=== PATIENT | female | born 1985 | race American Indian/Alaskan Native ===

== ENCOUNTER 2017-08-22 08:20 | Emergency (ER) | payer MEDICAID ==
[2017-08-22 09:05] LABS: Basophils % (Auto) 0.6 % (0.0-1.8); Eosinophils % (Auto) 4.7 % (0.0-4.3); Hematocrit 34.8 % (30.3-42.9); Mean Corpuscular HGB Conc 35 % (30-34); Mean Corpuscular Hemoglobin 28 pg (28-32); Mean Corpuscular Volume 80 fl (79-97); Platelet Count 460 K/mm3 (140-440); Red Blood Count 4.36 M/mm3 (3.65-5.03); Red Cell Distribution Width 13.5 % (13.2-15.2); White Blood Count 8.8 K/mm3 (4.5-11.0)
[2017-08-22 09:14] LABS: Anion Gap 17 mmol/L; BUN/Creatinine Ratio 15; Blood Urea Nitrogen 9 mg/dL (7-17); Calcium 8.5 mg/dL (8.4-10.2); Carbon Dioxide 23 mmol/L (22-30); Glucose 229 mg/dL (65-100); Sodium 136 mmol/L (137-145)
[2017-08-22 09:33] LABS: Bacteria,Urine 1+ /HPF (Negative); Bilirubin,Urine NEG (Negative); Blood,Urine MOD (Negative); Ketones,Urine NEG (Negative); Leukocyte Esterase,Urine TR (Negative); Mucus,Urine FEW /HPF; Nitrite,Urine NEG (Negative); Protein,Urine <15 mg/dL mg/dL (Negative)
--- NOTE | 2017-08-22 10:17 | Emergency Department Report ---
Chief Complaint: Vaginal Bleeding Stated Complaint: PREG AND BLEEDING Time Seen by Provider: 08/22/17 10:13 - HPI History of Present Illness: PT states she is 8 weeks . PT states she has been seen by [facility] DIET[facility]. PT states she noticed reddish-pinkish discharge. G4 P 2 - ROS Review of Systems: + nausea + vomiting - Exam Vital Signs: Vital Signs 08/22/17 08:23 Temperature 98.8 F Pulse Rate 110 H Respiratory 18 Rate Blood Pressure 150/92 O2 Sat by Pulse 100 Oximetry Physical Exam: PT looks well, non toxic. abd soft and not tender MSE screening note: Focused history and physical exam performed. Due to findings the following was ordered: ED Medical Decision Making - Lab Data Result diagrams: 08/22/17 08:37 08/22/17 08:37 ED Disposition for MSE Condition: Stable Referrals: PRIMARY CARE, [Primary Care Provider] - 3-5 Days
--- NOTE | 2017-08-22 11:15 | Ultrasound Report ---
Pelvic and transvaginal sonography: History: and bleeding. Findings: Uterus measures 13.1 x 8 x 9.2 cm. Single intrauterine gestation is noted. The CRL of the fetus is 19.1 mm corresponding to 8 weeks and 3 days of gestation. heart rate 168 per minute. Small subchorionic bleed measuring 1.2 x 0.5 cm. Right ovary 3.5 x 1.4 x 2.6 cm. No mass. Left ovary 3.1 x 1.3 x 1.8 cm. No mass. Impression: Single viable intrauterine gestation. Small subchorionic bleed.
[2017-08-22 12:10] VITALS: BP 150/92
--- NOTE | 2017-08-22 12:17 | Emergency Department Report ---
ED Female HPI - General Chief complaint: Vaginal Bleeding Stated complaint: PREG AND BLEEDING Time Seen by Provider: 08/22/17 10:13 Source: patient Mode of arrival: Ambulatory Limitations: No Limitations - History of Present Illness Initial comments: PT states she is 8 weeks . PT states she noticed bloody discharge today. PT states she has an appointment on . PT states she does have DM and she has not taken her insulin today. PT states her PCP recently changed her htn medication to Labetaolol. PT states she recently had sex. MD Complaint: vaginal bleeding -: Gradual Radiation: suprapubic Severity: mild Severity scale (0 -10): 2 Quality: cramping Consistency: constant Improves with: none Worsens with: none Are you Now?: Yes Associated Symptoms: vaginal discharge (bloody vaginal discharge ), vaginal bleeding, nausea/vomiting, loss of appetite. denies: dysuria - Related Data Sexually active: Yes : 4 Para: 2 A: 1 Home Medications Medication Instructions Recorded Confirmed Last Taken Insulin Aspart Prot/Aspart(Nf) 10 units SQ BID 05/03/14 05/03/14 05/03/14 [NovoLOG Mix 70/30 VIAL] Liraglutide [Victoza 2-Guero] 1.2 mg SQ DAILY 05/03/14 05/03/14 05/03/14 Previous Rx's Medication Instructions Recorded Last Taken Type Vit/Iron Fum/Folic AC 1 each PO QDAY #90 tablet 05/04/14 Unknown Rx [ Vitamin Tablet] Doxylamine Succinate/Vit B6 1 each PO HS PRN #14 tablet. 08/22/17 Unknown Rx [Red Garcia 10-10 mg Tablet] Promethazine [Phenergan TAB] 25 mg PO Q6HR PRN #12 tab 08/22/17 Unknown Rx Allergies Allergy/AdvReac Type Severity Reaction Status Date / Time No Known Allergies Allergy Unverified 05/03/14 21:48 ED Review of Systems ROS: Stated complaint: PREG AND BLEEDING Other details as noted in HPI Comment: All other systems reviewed and negative Constitutional: denies: chills, fever Gastrointestinal: abdominal pain (mild cramp, rates 2/10 ), nausea, vomiting, other (PT states she recently went to her [facility] and that she was supposed to have RX for Phenergan ) Neurological: denies: headache, abnormal gait ED Past Medical Hx - Past Medical History Previous Medical History?: Yes Hx Hypertension: Yes Hx Diabetes: Yes Additional medical history: Chronic Back Pain - Surgical History Past Surgical History?: Yes Additional Surgical History: Bilateral Breast Reduction - Social History Smoking Status: Current Some Day Smoker Substance Use Type: None - Medications Home Medications: Home Medications Medication Instructions Recorded Confirmed Last Taken Type Insulin Aspart Prot/Aspart(Nf) 10 units SQ BID 05/03/14 05/03/14 05/03/14 History [NovoLOG Mix 70/30 VIAL] Liraglutide [Victoza 2-Guero] 1.2 mg SQ DAILY 05/03/14 05/03/14 05/03/14 History Vit/Iron Fum/Folic AC 1 each PO QDAY #90 tablet 05/04/14 Unknown Rx [ Vitamin Tablet] Doxylamine Succinate/Vit B6 1 each PO HS PRN #14 tablet. 08/22/17 Unknown Rx [Diclegis Dr 10-10 mg Tablet] Promethazine [Phenergan TAB] 25 mg PO Q6HR PRN #12 tab 08/22/17 Unknown Rx ED Physical Exam - General Limitations: No Limitations General appearance: alert, in no apparent distress - Head Head exam: Present: atraumatic, normocephalic, normal inspection - Eye Eye exam: Present: normal appearance, PERRL, EOMI. Absent: conjunctival injection - ENT ENT exam: Present: normal exam, mucous membranes moist, normal external ear exam - Neck Neck exam: Present: normal inspection, full ROM - Respiratory Respiratory exam: Absent: respiratory distress, chest wall tenderness - Cardiovascular Cardiovascular Exam: Present: normal rhythm, tachycardia - GI/Abdominal GI/Abdominal exam: Present: soft, normal bowel sounds. Absent: tenderness, guarding, rebound - Extremities Exam Extremities exam: Present: normal inspection, full ROM - Back Exam Back exam: Present: normal inspection, full ROM. Absent: tenderness, CVA tenderness (R), CVA tenderness (L), muscle spasm, paraspinal tenderness, vertebral tenderness - Neurological Exam Neurological exam: Present: alert, oriented X3 - Expanded Neurological Exam Expanded Patient oriented to: Present: person, place, time Best Eye Response (Susan): (4) open spontaneously Best Motor Response (Susan): (6) obeys commands Best Verbal Response (Susan): (5) oriented [place] Total: 15 - Psychiatric Psychiatric exam: Present: normal affect, normal mood - Skin Skin exam: Present: warm, dry, intact, normal color ED Course Vital Signs 08/22/17 08:23 Temperature 98.8 F Pulse Rate 110 H Respiratory 18 Rate Blood Pressure 150/92 O2 Sat by Pulse 100 Oximetry - Reevaluation(s) Reevaluation #1: 08/22/17 12:13 PT aware of lab and US results. PT states she has not taken her insulin today. PT states she has to go. PT aware of US results. PT not wanting to stay for IVFs or pelvic exam. PT states her nausea is mild and she thinks can be managed at home. 08/22/17 PT left before bp rechecked. PT was aware that her bp was elevated. Pt states that she has an appointment on and she will recheck her bp. 08/22/17 18:29 - Pulse Oximetry Interpretation Digit-Finger Initial Pulse Oximetry Readin ED Medical Decision Making - Lab Data Result diagrams: 08/22/17 08:37 08/22/17 08:37 Lab Results 08/22/17 08/22/17 08/22/17 Range/Units 08:37 08:37 08:37 WBC 8.8 (4.5-11.0) K/mm3 RBC 4.36 (3.65-5.03) M/mm3 Hgb 12.0 (10.1-14.3) gm/dl Hct 34.8 (30.3-42.9) % MCV 80 (79-97) fl MCH 28 (28-32) pg MCHC 35 H (30-34) % RDW 13.5 (13.2-15.2) % Plt Count 460 H (140-440) K/mm3 Lymph % (Auto) 26.7 (13.4-35.0) % [place] % (Auto) 7.4 H (0.0-7.3) % Eos % (Auto) 4.7 H (0.0-4.3) % Baso % (Auto) 0.6 (0.0-1.8) % Lymph # 2.3 (1.2-5.4) K/mm3 [place] # 0.7 (0.0-0.8) K/mm3 Eos # 0.4 (0.0-0.4) K/mm3 Baso # 0.1 (0.0-0.1) K/mm3 Seg Neutrophils % 60.6 (40.0-70.0) % Seg Neutrophils # 5.3 (1.8-7.7) K/mm3 Sodium 136 L (137-145) mmol/L Potassium 4.0 (3.6-5.0) mmol/L Chloride 100.0 (98-107) mmol/L Carbon Dioxide 23 (22-30) mmol/L Anion Gap 17 mmol/L BUN 9 (7-17) mg/dL Creatinine 0.6 L (0.7-1.2) mg/dL Estimated GFR > 60 ml/min BUN/Creatinine Ratio 15 % Glucose 229 H (65-100) mg/dL Calcium 8.5 (8.4-10.2) mg/dL HCG, Quant 33663 H (0-4) mIU/mL Urine Color (Yellow) Urine Turbidity (Clear) Urine pH (5.0-7.0) Ur Specific [place] (1.003-1.030) Urine Protein (Negative) mg/dL Urine Glucose (UA) (Negative) mg/dL Urine Ketones (Negative) mg/dL Urine Blood (Negative) Urine Nitrite (Negative) Urine Bilirubin (Negative) Urine Urobilinogen (<2.0) mg/dL Ur Leukocyte Esterase (Negative) Urine WBC (Auto) (0.0-6.0) /HPF Urine RBC (Auto) (0.0-6.0) /HPF U Epithel Cells (Auto) (0-13.0) /HPF Urine Bacteria (Auto) (Negative) /HPF Urine Mucus /HPF Blood Type Antibody Screen NICK Antibody Screen 08/22/17 08/22/17 Range/Units 08:37 09:01 WBC (4.5-11.0) K/mm3 RBC (3.65-5.03) M/mm3 Hgb (10.1-14.3) gm/dl Hct (30.3-42.9) % MCV (79-97) fl MCH (28-32) pg MCHC (30-34) % RDW (13.2-15.2) % Plt Count (140-440) K/mm3 Lymph % (Auto) (13.4-35.0) % [place] % (Auto) (0.0-7.3) % Eos % (Auto) (0.0-4.3) % Baso % (Auto) (0.0-1.8) % Lymph # (1.2-5.4) K/mm3 [place] # (0.0-0.8) K/mm3 Eos # (0.0-0.4) K/mm3 Baso # (0.0-0.1) K/mm3 Seg Neutrophils % (40.0-70.0) % Seg Neutrophils # (1.8-7.7) K/mm3 Sodium (137-145) mmol/L Potassium (3.6-5.0) mmol/L Chloride (98-107) mmol/L Carbon Dioxide (22-30) mmol/L Anion Gap mmol/L BUN (7-17) mg/dL Creatinine (0.7-1.2) mg/dL Estimated GFR ml/min BUN/Creatinine Ratio % Glucose (65-100) mg/dL Calcium (8.4-10.2) mg/dL HCG, Quant (0-4) mIU/mL Urine Color Yellow (Yellow) Urine Turbidity Clear (Clear) Urine pH 6.0 (5.0-7.0) Ur Specific [place] 1.023 (1.003-1.030) Urine Protein <15 mg/dl (Negative) mg/dL Urine Glucose (UA) >=500 (Negative) mg/dL Urine Ketones Neg (Negative) mg/dL Urine Blood Mod (Negative) Urine Nitrite Neg (Negative) Urine Bilirubin Neg (Negative) Urine Urobilinogen 4.0 (<2.0) mg/dL Ur Leukocyte Esterase Tr (Negative) Urine WBC (Auto) 2.0 (0.0-6.0) /HPF Urine RBC (Auto) 3.0 (0.0-6.0) /HPF U Epithel Cells (Auto) 10.0 (0-13.0) /HPF Urine Bacteria (Auto) 1+ (Negative) /HPF Urine Mucus Few /HPF Blood Type A POSITIVE Antibody Screen TNR NICK Antibody Screen Negative - Radiology Data Radiology results: report reviewed [facility] [employer]- live IUP, small subchorionic hemorrhage - Differential Diagnosis threatned miscarriage, miscarriage, uti, Critical Care Time: No Critical care attestation.: If time is entered above; I have spent that time in minutes in the direct care of this critically ill patient, excluding procedure time. ED Disposition Clinical Impression: Threatened in early , Bleeding in early , Nausea, Hyperglycemia Subchorionic hematoma in first trimester Qualifiers: Fetus number: single or unspecified fetus Qualified Code(s): O41.8X10 - Other specified disorders of amniotic fluid and membranes, first trimester, not applicable or unspecified Disposition: DC-01 TO HOME OR SELFCARE Is pt being admited?: No Does the pt Need Aspirin: No Condition: Stable Instructions: Threatened Miscarriage (ED), Diabetic Hyperglycemia (ED) Additional Instructions: Pelvic rest x the next 7 days Follow up with [facility] in the next 2-3 days Take your insulin as prescribed today Follow up with PCP in the next 2-3 days for bp recheck No driving or alcohol after taking Phenergan Prescriptions: Doxylamine Succinate/Vit B6 [Red Garcia 10-10 mg Tablet] 1 each PO HS PRN #14 tablet.dr PRN Reason: Nausea Promethazine [Phenergan TAB] 25 mg PO Q6HR PRN #12 tab PRN Reason: Nausea Referrals: PRIMARY CARE, [Primary Care Provider] - 3-5 Days [facility] [place] [Provider Group] - 3-5 Days Forms: Accompanied Note, Work/School Release Form(ED) Time of Disposition: 12:17
[2017-08-22] MEDS ORDERED: NACL 0.9% 500 ML IR ONE (14:16)
[2017-08-22] MEDS ORDERED: XYLOCAINE 1% 20 mL ONE (14:17)
[2017-08-22] MEDS ORDERED: ANCEF/STERILE WATER 2 GM/20 ML 2 GM/20 ML SYRINGE IV ONE (14:17)
[2017-08-22] MEDS ORDERED: MARCAINE 0.5% 60 ML INFILTRATI ONE (14:17)
[2017-08-22] MEDS ORDERED: BENADRYL ONE (14:18)
== END 2017-08-22 14:54 | disposition home or self-care (01) ==
LOC: ED 08:20
DX: O20.0 Threatened abortion (principal); O41.8X10 Other specified disorders of amniotic fluid and membranes, first trimester, not applicable or unspecified; O26.891 Other specified pregnancy related conditions, first trimester; E11.65 Type 2 diabetes mellitus with hyperglycemia; I10 Essential (primary) hypertension; O99.331 Smoking (tobacco) complicating pregnancy, first trimester; F17.200 Nicotine dependence, unspecified, uncomplicated; Z3A.08 8 weeks gestation of pregnancy; Z79.4 Long term (current) use of insulin; Z98.890 Other specified postprocedural states
CPT/HCPCS: 36415; 76801; 76817; 80048; 81001; 84702; 85025; 86850; 86900; 86901; 99284; J0690; J1200; J2930